=== PATIENT | male | born 1955 | race Caucasian/White ===

== ENCOUNTER 2018-06-21 20:22 | Inpatient (IN) ==
[2018-06-21] MEDS ORDERED: ORPHENADRINE IM ONE (20:35)
[2018-06-21] MEDS ORDERED: KETOROLAC 60 MG/2 ML VIAL IM ONE (20:35)
[2018-06-21] MEDS ORDERED: HYDROcodone-APAP 5 MG -325 MG TABLET PO ONE (20:36)
--- NOTE | 2018-06-21 21:05 | PDOC ---
Back Pain / Injury HPI - General Chief Complaint: Neck / Back Complaint Stated Complaint: BACK PAIN Date Seen by Provider: 06/21/18 Time Seen by Provider: 20:30 Source: Patient Exam Limitations: POSITIVE: No limitations Nurse's Notes Reviewed & Considered: Yes - History of Present Illness Initial Comments: The patient is a 62-year-old male who presents to the emergency department with complaints of right lower back pain. He states that over the weekend he developed some increased pain and stiffness in his lower back primarily in the right lower back. He states when he woke up this morning he felt pretty good. While in the parking lot at [employer] he was stepping into his truck when he felt something give way in his back. Since then he has had significant increase in pain primarily in the right lower back with some radiation down the back of his leg towards his knee. He went to the chiropractor earlier today however his pain has continued to worsen. He currently rates his pain an 8 out of 10. He does report some numbness down the side of his leg to his knee as well on the right side. He states that he had similar symptoms 20 years ago that lasted for several weeks. He denies any prior back surgery or fractures. He denies any associated abdominal pain or urinary symptoms. - Patient Home Medications Home Medications: Home Medications Doxazosin Mesylate 1 tab PO DAILY 06/21/18 Furosemide 40 mg PO DAILY 06/21/18 - Patient Allergies Allergies/Adverse Reactions: Allergies Allergy/AdvReac Type Severity Reaction Status Date / Time succinylcholine AdvReac Other : Verified 06/21/18 21:04 See Comment Past Medical History - heen HEENT History: Denies History Cardiovascular History: Denies History Respiratory History: Denies History Additional Gastrointestinal History: Lap Band surgery 2010 Genitourinary History: Denies History Endocrine History: Denies History Musculoskeletal History: Other (please comment) Prosthesis or Implant: No Additional Musculoskeletal History: Bicep surgery, 4 knee surgeries, 4 elbow surgeries, hernia x5, Foot surgery, Neurological History: Denies History Blood Disorders: Denies History Psychiatric History: Denies History Cancer History: Denies History In Past Year Been Physically Harmed or Verbally Threatened: No History of MDRO: No Tobacco Use: Former Smoker Alcohol Use: None In the Past 12 Months, Have Used or Abuse Any Substance: None Previous Surgical History: Yes Type / Date of Surgery: See surgical history above Significant Family History: No pertinent family hx Past Medical History Reviewed: Reviewed - No Changes ROS - Limitations ROS Limitations: No Limitations Constitution: DENIES: Chills, Fever Cardiovascular: DENIES: Chest Pain Respiratory: DENIES: Cough Non Productive, Cough Productive, Hurts To Breathe, Shortness Of Breath Neurological: REPORTS: Numbness (Some numbness on the side of his right leg to the level of his knee) Gastrointestinal: REPORTS: Denies GI Symptoms. DENIES: Abdominal Pain, Nausea, Vomitting Musculoskeletal: REPORTS: Back Pain. DENIES: Lower Extremity Swelling Genitourinary: DENIES: Dysuria, Hematuria, Difficulty Urinating Eyes: REPORTS: Denies Symptoms ENT: REPORTS: Denies Symptoms Skin: DENIES: Rash Back Physical Assessment - General Appearance General Appearance: REPORTS: Alert, Cooperative, No Acute Distress - HEENT HEENT: POSITIVE: Head Inspection Nml - Neck Neck: POSITIVE: Painless ROM, Trachea Midline - Respiratory / CVS Respiratory / CVS: POSITIVE: Chest Non Tender, Breath Sounds Normal, No Respiratory Distress, Heart Sounds Normal, Regular Rate/Rhythm - Abdomen Abdomen: Soft: (All Quadrants), Denies Tenderness: (All Quadrants), No Distention: (All Quadrants) - Back Back: REPORTS: Vertebral Pt. Tenderness (He does have tenderness in the lower lumbar region as well as the right paravertebral muscles in the lumbar region), Other (He does have pain with raising his right leg which initiates in his right lower back and shoots down his right leg to the level of his knee) - Skin Skin: REPORTS: Intact. DENIES: No Rash - Extremities Extremity Assessment: Normal Inspection: (ALL) Peripheral Pulses: Dorsalis-pedis (R): 2+ - Neurological / Psychological Neuro / Psych: POSITIVE: Oriented X3, Motor Normal Reflexes: Patellar (R): 2+, Patellar (L): 2+ Back Progress - Results Reviewed by me Xrays/CTs/US Reviewed: Yes Discussed with Radiologist: Yes Radiology Findings: Lumbar spine x-ray shows some degenerative changes with straightening of the spine, no acute fractures per radiologist. CT of the lumbar spine does show a combination of degenerative disc disease and degenerative arthritis causing some degree of central canal stenosis and neuro foraminal stenosis per radiologist. Lab Results Reviewed by Me: Yes CBC and BMP: 06/21/18 22:29 06/21/18 22:29 Lab Results:: Laboratory Results 06/21/18 06/21/18 22:29 22:29 WBC 8.20 RBC 5.12 Hgb 14.4 Hct 42.9 MCV 83.8 MCH 28.1 MCHC 33.6 RDW Std Deviation 44.9 RDW Coeff of Charlie 14.9 H Plt Count 211 MPV 10.8 Immature Gran % (Auto) 0.2 Neut % (Auto) 72.5 Lymph % (Auto) 16.8 Childress % (Auto) 10.0 Eos % (Auto) 0.4 Baso % (Auto) 0.1 Immature Gran # (Auto) 0.02 Neut # (Auto) 5.94 Lymph # (Auto) 1.38 Childress # (Auto) 0.82 H Eos # (Auto) 0.03 Baso # (Auto) 0.01 WBC Morphology Comment Normal morphology Plt Morphology Comment Normal morphology RBC Morph Comment Normal morphology Sodium 140 Potassium 4.1 Chloride 104 Carbon Dioxide 23 Anion Gap 13 BUN 18 Creatinine 1.2 Estimated GFR > 60 BUN/Creatinine Ratio 15.00 Glucose 99 Calculated Osmolality 291.0 Calcium 9.0 Magnesium 2.1 Total Bilirubin 0.8 AST 26 ALT 18 L Alkaline Phosphatase 85 C-Reactive Protein 1.8 H Total Protein 7.2 Albumin 4.2 Globulin 3.0 Albumin/Globulin Ratio 1.40 Serum Alcohol < 10 - Patient's Progress MDM / ED Course: The patient received Toradol 60 mg IM, Norflex 60 mg IM and [place] 5/325, 2 pills by mouth for pain. He did not really experience any pain relief with administration of any of these medications. Lumbar spine films showed some degenerative changes and straightening of the lumbar spine with no acute fractures per radiologist. The patient was still having considerable pain and hyperventilating. An IV was established and labs were drawn all of which are essentially unremarkable except for a mildly elevated CRP. He received Dilaudid 1 mg IV and Zofran 4 mg IV for pain. He initially had fairly good pain relief as long as he was laying completely flat. After administration of Dilaudid however he started to have oxygen desaturations especially when he would fall asleep laying flat. He was placed on O2 per nasal cannula. He then started to have recurrent significant pain which she stated was just as bad as when he first came in. He subsequently was sent for CT scan of the lumbar spine which does show a combination of degenerative disc disease and degenerative changes causing some central canal stenosis and neural foraminal stenosis at various levels, no acute fracture per radiologist. He was given a dose of Decadron 10 mg IV as well as Ativan 0.5 mg IV. He continued to have significant desaturations when he would fall asleep. The patient stated that he has been diagnosed with sleep apnea in the past however he thought that since he had lost 100 pounds that he was no longer having this issue. He does admit that he has not been tested for sleep apnea since he lost weight. At this point the patient is having continued oxygen desaturations likely from administration of multiple medications and underlying sleep apnea. His pain is also limiting his ability to move or sit up. Decision was made to admit the patient for further care. Dr. Deleon has agreed to admit the patient. The patient is in agreement with this plan. - Consult Counseled: POSITIVE: Patient, RE: Lab Results, RE: Radiology Results, RE: DX, RE: Need for F/U Patient Care Time - Estimated PCT Patient Care Time (In Minutes): 55 Vital Signs - Recent Vital Signs Vital Signs: Vital Signs (Last 8 hours) Temp Pulse Resp BP Pulse Ox 06/22/18 01:21 13 92 06/22/18 00:06 64 13 92/48 90 06/21/18 23:33 64 14 111/63 97 06/21/18 22:44 67 16 120/75 94 06/21/18 20:34 97.6 F 71 21 139/79 92 - VS Reviewed Vital Signs Reviewed: Yes Discharge Clinical Impression: Lumbar radiculopathy, Sleep apnea, Hypoxia Discharge Disposition: Admit to Observation Condition: Fair Follow Up With: NONE,NONE [Primary Care Provider] -
--- NOTE | 2018-06-21 21:46 | DI ---
History: ITS.REASON low back, right leg pain Physician Notes: Tech Comments: Exam: XR L SPINE 3 views Comparison: None available FINDINGS: No evidence of fracture or malalignment. Straightening may represent position or spasm. Suggestion of multilevel spondylosis/discogenic change lower lumbar spine. Note of lap band device. IMPRESSION: No evidence of fracture or malalignment. Straightening may represent position or spasm. Suggestion of multilevel spondylosis/discogenic change lower lumbar spine.
[2018-06-21] MEDS ORDERED: Sodium Chloride 0.9% 1,000 ML PRIMARY IV ONE (22:13)
[2018-06-21] MEDS ORDERED: HYDROmorphone 2 MG/1 ML IVP ONE (22:14)
[2018-06-21] MEDS ORDERED: ONDANSETRON 4 MG/2 ML VIAL IVP ONE (22:15)
[2018-06-21 22:26] LABS: BASOPHILS # (AUTO) 0.01 10*3/UL; BASOPHILS % (AUTO) 0.1 % (0-1); EOSINOPHILS # (AUTO) 0.03 10*3/UL; EOSINOPHILS % (AUTO) 0.4 % (0-8); Hematocrit [HCT] 42.9 % (42.0-52.0); Hemoglobin [HGB] 14.4 g/dL (14.0-18.0); LYMPHOCYTES # (AUTO) 1.38 10*3/uL; MEAN CORPUSCULAR HEMOGLOBIN 28.1 PG (27-31); MEAN CORPUSCULAR HGB CONC 33.6 g/dL (33-37); MEAN CORPUSCULAR VOLUME 83.8 FL (80-90); MEAN PLATELET VOLUME 10.8 FL (7.4-12.2); MONOCYTES # (AUTO) 0.82 10*3/UL (0.3-0.8); NEUTROPHILS # (AUTO) 5.94 10*3/UL; NEUTROPHILS % (AUTO) 72.5 % (50-80); RED BLOOD COUNT 5.12 10^6/uL (4.70-6.10)
[2018-06-21 22:30] LABS: PLATELET MORPHOLOGY COMMENT NORMAL MORPHOLOGY (NORM); RBC MORPHOLOGY COMMENT NORMAL MORPHOLOGY (NORM); WBC MORPHOLOGY COMMENT NORMAL MORPHOLOGY (NORM)
[2018-06-21 22:38] LABS: BLOOD UREA NITROGEN 18 mg/dL (7-22); SERUM ALBUMIN 4.2 g/dL (3.5-4.8)
[2018-06-21] MEDS ORDERED: DEXAMETHASONE PF 10 MG/1 ML VIAL IVP ONE (23:03)
[2018-06-21] MEDS ORDERED: LORazepam 2 MG/1 ML VIAL IVP ONE (23:45)
--- NOTE | 2018-06-22 00:53 | DI ---
EXAM: CT Lumbar Spine Without Intravenous Contrast CLINICAL HISTORY: ITS.REASON low backpain, right leg pain/numbness Physician Notes: Tech Comments: TECHNIQUE: Axial computed tomography images of the lumbar spine without intravenous contrast. COMPARISON: No relevant prior studies available. FINDINGS: Vertebrae: No acute fracture. No subluxation. Discs/spinal canal/neural foramina: Multilevel degenerative changes with varying degrees of central canal and neuroforaminal stenosis. Central canal stenosis is most prominent at L3-4 and L4-5. Neural foraminal stenosis is most prominent at the right L2-3 level. Soft tissues: Unremarkable. IMPRESSION: Degenerative changes without evidence of acute fracture.
--- NOTE | 2018-06-22 02:12 | PDOC ---
HPI - History of Present Illness History of Present Illness: Is a very nice 62-year-old gentleman is from [place] and that was at the [place] 20 minute in [place] while he was stepping to his truck he started having acute back pain on the lower right side extending towards his knee went to a chiropractor's pain continued to get worse and was seen in the ER CT scan and x-ray showed no fracture he was admitted for pain control He did pretty well overnight with Toradol, IV Tylenol, muscle relaxants, and steroids patient is still in pain I consult neurosurgery which ordered an MRI Past Medical History Medical History: Hypertension Tobacco Use: Former Smoker In the Past 12 Months, Have Used or Abuse Any of the Following Substance: None Medication / Allergies Home Medications: Home Medications Medication Instructions Recorded Confirmed Doxazosin Mesylate 1 tab PO DAILY 06/21/18 06/21/18 Furosemide 40 mg PO DAILY 06/21/18 06/21/18 Allergies/Adverse Reactions: Allergies Allergy/AdvReac Type Severity Reaction Status Date / Time succinylcholine AdvReac Other : Verified 06/21/18 21:04 See Comment Review of Systems - Review of Systems All Systems: Reviewed & No Additional Complaints Except as Stated - Respiratory Respiratory: DENIES: Negative System Review, Cough, Sputum, Dyspnea At Rest, Dyspnea with Exertion, Pleuritic Pain, Hemoptysis, Wheezing, Other, See HPI - Cardiovascular Cardiovascular: DENIES: Negative System Review, Chest Pain, Edema, Syncope, Palpitations, Orthopnea, Paroxysmal Nocturnal Dyspnea, Other, See HPI - Gastrointestinal Gastrointestinal / Abdominal: DENIES: Negative System Review, Nausea, Vomiting, Diarrhea, Constipation, Abdominal Pain, Bloody Stool, Poor Appetite, Heartburn, Regurgitation, Bloating, Lactose Intolerance, Melena, Bright Red Blood per Rectum, Other, See HPI - Musculoskeletal Musculoskeletal: REPORTS: Back Pain Exam - Vitals Vital Signs: Vital Signs Temperature 97.6 F Pulse Rate [Pulse Oximeter] 64 Respiratory Rate 13 Blood Pressure [Left Arm] 92/48 Pulse Ox 92 Oxygen Delivery Method Nasal Cannula Height 5 ft 9 in Weight 255 lb - General General Appearance: No Acute Distress, Cooperative - Neck Neck Exam: Normal Inspection, Full ROM, No Tenderness, No Lymphadenopathy, No Thyromegaly, JVP is not Raised - Respiratory Respiratory Exam: POSITIVE: Clear to Auscultation - Bilaterally, Breathing Non Labored, Normal To Percussion, Normal to Percussion and Palpation - Cardiovascular Cardiovascular Exam: POSITIVE: RRR, No Murmur, No Clicks, No Gallops, No Rubs, PMI Non-Displaced - GI/Abdominal GI/Abdominal Exam: POSITIVE: Normal Bowel Sounds, Non Tender, Non Distended, Soft, No Masses, No Hepatomegaly, No Splenomegaly, No Organomegaly - Extremities Extremities Exam: POSITIVE: No Clubbing Present, No Edema Present, No Cyanosis Present - Back Back Exam: POSITIVE: Tenderness Additional Back Exam Details: Right lower back on palpation - Neurological Neurological Exam: POSITIVE: Alert, Oriented x 3, Reflexes Normal, Normal Gait, CN II-XII Intact, No Facial Droop, Speech Intact / Clear, Moves All Extremities Equally, No Fasciculations, No Clonus Results - Labs CBC and BMP: 06/21/18 22:29 06/21/18 22:29 Assessment and Plan - Patient Problems (1) Back pain Current Visit: Yes Status: Acute Comment: no narcs /jose will give tylenol iv/toradol/solumedrol. vapotherm if necesary consult to neurosurgery MRI in progress I believe this is all muscle spasms continue PTOT muscle relaxants and nonnarcotic pain control Code(s): M54.9 - Dorsalgia, unspecified
[2018-06-22] MEDS ORDERED: ACETAMINOPHEN 325 MG TABLET PO PRN (02:25)
[2018-06-22] MEDS ORDERED: DOCUSATE 100 MG CAPSULE PO PRN (02:25)
[2018-06-22] MEDS ORDERED: LIDOCAINE W/ SODIUM BICARB 0.5 ML SYR SUBD PRN (02:25)
[2018-06-22] MEDS ORDERED: ONDANSETRON 4 MG/2 ML VIAL IVP PRN (02:25)
[2018-06-22] MEDS: Sodium Chloride 0.9% 1,000 ML PRIMARY IV SCH ×3 (02:45→21:44)
[2018-06-22] MEDS: methylPREDNISolone 125 MG/2 ML VIAL IVP SCH ×4 (02:45→19:56)
[2018-06-22] MEDS: Acetaminophen 1000mg Inj 1,000 MG/100 ML VIAL IV PRN ×3 (02:46→21:40)
[2018-06-22] MEDS: HEPARIN 5000 UNIT/1 ML SUBCUT SCH ×3 (02:50→19:56)
[2018-06-22] MEDS: KETOROLAC 30 MG/1 ML VIAL IVP PRN ×3 (06:32→19:29)
[2018-06-22] MEDS ORDERED: FUROSEMIDE 40 MG TABLET PO SCH (09:00)
[2018-06-22] MEDS ORDERED: DOXAZOSIN 2 MG TABLET PO SCH (09:00)
[2018-06-22] MEDS: CYCLOBENZAPRINE 10 MG TABLET PO PRN ×2 (09:09→16:19)
--- NOTE | 2018-06-22 12:29 | DI ---
MRI Lumbar Spine WO Contrast 06/22/2018 10:31 AM History: [facility] [place] ^low back pain with radiculopathy Comparison: Lumbar spine radiographs from 06/21/2018. CT lumbar spine 06/22/2018. Procedure: Noncontrast routine MR imaging of the lumbar spine was performed. Findings: There are five non rib-bearing lumbar type vertebral bodies. There is congenital central ca nal narrowing secondary to short pedicles and straightening of the lumbar lordosis without spondyloli sthesis. There is an L3 vertebral hemangioma. Modic type II endplate changes are present at the L3/4 and L4/5 levels. The vertebral body heights are maintained and marrow signal is otherwise preserved. There is normal termination of the conus at the L1 level. L1/2: Mild disc desiccation without height loss. Schmorl's node formation. Concentric disc bulge and narrows the central canal to 10 mm. There is mild bilateral neuroforaminal and lateral recess narrow ing. L2/3: Mild disc desiccation and height loss. Concentric disc bulge narrows the central canal to 9 mm. There is a right foraminal disc protrusion that impinges on the exiting right L2 nerve root in the n eural foramen and far lateral space. The disc bulge also causes lateral recess narrowing on the left and is in contact with the descending left L3 nerve root in the lateral recess. L3/4: Moderate disc desiccation and height loss. Concentric disc bulge narrows the central canal to 7 mm. The disc bulge combined with ligamentum flavum hypertrophy and facet arthrosis results in modera te bilateral neuroforaminal and lateral recess narrowing. The disc bulge impinges on the descending l eft L4 nerve root in the lateral recess. L4/5: Moderate disc desiccation and height loss. Concentric disc bulge narrows the central canal to 8 mm. The disc bulge with ligamentum flavum hypertrophy and facet arthrosis results in moderate bilate ral neuroforaminal and lateral recess narrowing. The disc bulge contacts the exited L4 nerve roots in the far lateral space bilaterally. The disc bulge contacts the descending L5 nerve roots in the late ral recesses bilaterally. L5/S1: Mild disc desiccation and height loss. There is no significant central canal stenosis. Ligamen tiffany flavum hypertrophy and facet arthrosis results in mild bilateral neuroforaminal narrowing. Paravertebral soft tissues are within normal limits. Impression: Multilevel degenerative disc disease as above. There is a right foraminal L2/3 disc protr usion that impinges on the exiting right L2 never in the neural foramen and far lateral space. Nerve root contact is noted at multiple other levels.
[2018-06-22] MEDS: CALCIUM CARBONATE 500 MG (TUMS) CHEWABLE TABLET PO PRN (14:00)
[2018-06-22] MEDS ORDERED: MORPHINE SULFATE 2 MG/1 ML IVP ONE (14:09)
--- NOTE | 2018-06-22 14:35 | PT.PROG ---
Progress Note Progress Note: Attempted PT evaluation this AM and PM - pt refused secondary to MRI this morning and pain this afternoon. Will attempt evaluation for back pain tomorrow.
--- NOTE | 2018-06-22 16:08 | CONSULT ---
Consult Note - Consult Consult Date: 06/22/18 Reason for Consult: PreOp Consulation : Neuro Requesting Physician: Branden Deleon MD Primary Care Provider: NONE NONE - History of Present Illness History of Present Illness: Mr. Saleh is a 62-year-old gentleman is from [place] admitted through the ER for intractable pain with inability to weight bear and to walk. He felt a pop in his back when he was stepping into his truck yesterday. He instantly felt severe right sided low back pain radiating into the lateral aspect of the right upper thigh where his pain in the most intense, tapering medially toward the knee. He is laying flat in the bed unable to have the back of the bed raised or to walk even to the bathroom because of severe pain. It took so much pain medication in the ER to control his pain that he became apneic. His pain has not responded to IV solumedrol. Medical History: Hypertension Surgical History: Lap band Right elbow surgery x 4 Right hernia surgery x 4 Left Knee surgery x 4 Carpal tunnel surgery x 3 (left once, right twice) Breast mass removal bilaterally. Medications: Cardura Lasix Medication Allergies: Succinylcholine Family History: Social History: Non-smoker Review of Systems: Systems reviewed and positive currently only for back pain and right leg pain. Physical Examination; Awake, alert, fully oriented Head normocephalic Neck supple Heart regular rate and rythym Lungs clear to auscultation Abdomen soft, nontender Extremities within normal limits Skin within normal limits; multiple surgical scars CN II - XII functionally intact to examination Weakness of right ileospoas muscle, 4-/5, strength full in all other major muscle groups of the upper and lower extremties bilaterally. Imaging: I reviewed Mr. Saleh's lumbar MRI scan, CT scan, and x-ray images of the lumbar spine performed at [facility] [place], 06/22/2018. The MRI, CT, and x-ray images demonstrate evidence of multilevel lumbar degenerative changes, age appropriate. The MRI scan demonstrates a right L2-3 foraminal disc herniation filling the neuroforamen, clearly impinging upon the exiting right L2 nerve root. Impression: 1.) Intractable right L2 radiculopathy 2.) Lateral (foraminal) right L2-3 herniated nucleus propulsis filling the right L2 neuroforamen and clearly impinging upon the exiting right L2 nerve root. Medical Decision Making: I reviewed Mr. Saleh's MRI scan with him and his , demonstrating for them the right L2-3 lateral disc herniation that I think is responsible for his symptoms. We discussed that although his pain is severe and incapacitating neither his symptoms nor his lumbar pathology is life or limb threatening. Therefore the treatment options available to him are expectant management with activity modification, medical management, physical therapy, lumbar injections, or surgical treatment. Realistically with him incapacitated by his pain lying flat in bed, not able to elevate the head of his bed or even to ambulate to the bathroom, with the weakness of his ileopsoas making him a fall risk if he could ambulate, the only treatment that will give his significant and durable relief of his symptoms is surgical treatment. The surgery required to relieve his symptoms in my opinion is a right L2-3 microlumbar discectomy. He wished to proceed with the surgical procedure. We discussed the technical aspects of the procedure. I used his MRI scan to illustrate the basic technical aspects of the procedure. We discussed that he has approximately a 70-80% chance of significant reduction of his symptoms with the procedure. We discussed the numerous risks of the procedure. We discussed the risk of blood loss including a remote risk of injury to a major blood vessel anterior to the spine that could result in catastrophic blood loss, require massive blood transfusion, and could potentially be a life threatening injury. We discussed that this could require emergent surgery through the abdomen by a general or vascular surgeon, or could require emergent transport to a higher acuity medical facility. We discussed an approximate 1-2% risk of infection. We discussed that a deep infection could require re-operation with irrigation and debridement of the surgical site, the placement of a PICC line, a month or more of IV antibiotic therapy and possibly an oral antibiotic regimen after that. We discussed the risk of a incidental durotomy with cerebral spinal fluid leak and that the risk of this is in the range of 5-10%. We discussed that sometimes the dural rent can be sewn up primarily, sometimes it cannot, but in those cases there are dural substitutes and tissue sealants that combined with post-operative bed rest for several days, will allow such dural rents to heal like any other tissue. We discussed that for persistent CSF leak, a blood patch, lumbar drain, or re-operation with re-exploration of the surgical site may be necessary. We discussed the risk of a post-operative hematoma or seroma, a fluid collection creating a mass effect on the nerves in the vicinity of the surgical site that generally if it going to occur usually occurs within the first 24-48 hours after the surgical procedure, and generally does require surgical evacuation. We discussed rarely they may occur on a delayed basis, but still may require operative treatment. We discussed the risk of new or worse symptoms secondary to the manipulation of the nerves during the procedure. We discussed that such new or worse symptoms generally would be transcient, getting better in weeks to months however there is a small chance that such new or worse symptoms could be permanent. We discussed the remote risk of complete paralysis from the waist down, including loss of all motor, sensory, bowel, bladder, and sexual function. We discussed the remote risk of from the induction of anesthesia. We discussed the remote risk of blindness undergoing a prone or "face down" procedure. We discussed the remote risk of a nerve palsy, numbness, tingling, loss of feeling, or weakness in an extremity secondary to pressure over the nerve during the procedure. We discussed that such nerve palsies almost always get better, but it can take months to years for improvement, and the recovery may not be complete. Mr. Saleh and his stated that they understood our discussion of the procedure and the potential benefits and risks of the procedure. I answered any questions that they had regarding the procedure. Mr. Saleh wished to proceed with the surgical procedure. Past Medical History Medical History: Hypertension Tobacco Use: Former Smoker In the Past 12 Months, Have Used or Abuse Any of the Following Substance: None Medication / Allergies Home Medications: Home Medications Medication Instructions Recorded Confirmed Doxazosin Mesylate 1 tab PO DAILY 06/21/18 06/21/18 Furosemide 40 mg PO DAILY 06/21/18 06/21/18 Allergies/Adverse Reactions: Allergies Allergy/AdvReac Type Severity Reaction Status Date / Time succinylcholine AdvReac Other : Verified 06/21/18 21:04 See Comment Exam - Vitals Vital Signs: Vital Signs Temperature 97.2 F Temperature Source Temporal Artery Scan Pulse Rate [Pulse Oximeter] 56 Pulse Rate [left hand] 56 Pulse Rate 50 Respiratory Rate 20 Blood Pressure [Left Arm] 121/73 Blood Pressure 126/79 Pulse Ox [left hand] 95 Pulse Ox 94 Oxygen Flow Rate [left hand] 3 Oxygen Flow Rate 2.5 Oxygen Delivery Method [left Room Air hand] Oxygen Delivery Method Nasal Cannula Height 5 ft 9 in Weight 264 lb 4 oz Results - Labs CBC and BMP: 06/21/18 22:29 06/21/18 22:29
--- NOTE | 2018-06-22 16:45 | OT.PROG ---
Progress Note Progress Note: Attempted occupational therapy evaluation this afternoon. Pt. refused to participate due to pain. Will attempt when pt.'s pain has improved. JAZ Hernandez/Megan
[2018-06-23] MEDS: CYCLOBENZAPRINE 10 MG TABLET PO PRN (01:03)
[2018-06-23] MEDS: KETOROLAC 30 MG/1 ML VIAL IVP PRN (03:06)
[2018-06-23] MEDS: methylPREDNISolone 125 MG/2 ML VIAL IVP SCH (03:06)
[2018-06-23] MEDS: HEPARIN 5000 UNIT/1 ML SUBCUT SCH (03:06)
[2018-06-23] MEDS: CALCIUM CARBONATE 500 MG (TUMS) CHEWABLE TABLET PO PRN (03:42)
[2018-06-23 04:47] LABS: BASOPHILS # (AUTO) 0.01 10*3/UL; BASOPHILS % (AUTO) 0.1 % (0-1); EOSINOPHILS # (AUTO) 0 10*3/UL; EOSINOPHILS % (AUTO) 0 % (0-8); Hematocrit [HCT] 42.2 % (42.0-52.0); Hemoglobin [HGB] 13.7 g/dL (14.0-18.0); LYMPHOCYTES # (AUTO) 0.77 10*3/uL; MEAN CORPUSCULAR HEMOGLOBIN 27.6 PG (27-31); MEAN CORPUSCULAR HGB CONC 32.5 g/dL (33-37); MEAN CORPUSCULAR VOLUME 85.1 FL (80-90); MEAN PLATELET VOLUME 11.5 FL (7.4-12.2); MONOCYTES % (AUTO) 4.2 % (5-15); NEUTROPHILS # (AUTO) 15.14 10*3/UL; NEUTROPHILS % (AUTO) 90.9 % (50-80); RED BLOOD COUNT 4.96 10^6/uL (4.70-6.10)
[2018-06-23] MEDS: Acetaminophen 1000mg Inj 1,000 MG/100 ML VIAL IV PRN (04:51)
[2018-06-23 04:58] LABS: BLOOD UREA NITROGEN 28 mg/dL (7-22); BUN/CREATININE RATIO 23.33 (6-20); SERUM ALBUMIN 3.2 g/dL (3.5-4.8)
[2018-06-23] MEDS ORDERED: Lactated Ringers 1,000 ML PRIMARY IV SCH (05:00)
[2018-06-23 05:05] LABS: PLATELET MORPHOLOGY COMMENT NORMAL MORPHOLOGY (NORM); RBC MORPHOLOGY COMMENT NORMAL MORPHOLOGY (NORM); WBC MORPHOLOGY COMMENT NORMAL MORPHOLOGY (NORM)
[2018-06-23] MEDS ORDERED: ceFAZolin Inj 2gm (Premix) 2 GM/50 ML BAG IV ONE ×2 (06:09→07:00)
[2018-06-23] MEDS: Sodium Chloride 0.9% 1,000 ML PRIMARY IV SCH (06:19)
[2018-06-23] MEDS ORDERED: Vancomycin-PHA to Dose IV SCH ×3 (07:00→19:00)
[2018-06-23] MEDS ORDERED: fentaNYL Inj 250 MCG/5 ML VIAL ONE (07:20)
[2018-06-23] MEDS ORDERED: MIDAZOLAM HCL 2 MG/2 ML VIAL ONE (07:20)
[2018-06-23] MEDS ORDERED: PROPOFOL 10 MG/1 ML (200 MG/20 ML) VIAL IV ONE (07:21)
[2018-06-23] MEDS ORDERED: LIDOCAINE MPF 2% - 5 ML (20 MG/1 ML) ONE (07:21)
[2018-06-23] MEDS ORDERED: Sodium Chloride 0.9% vial 10 ML ONE ×2 (07:23→10:37)
[2018-06-23] MEDS ORDERED: BACITRACIN 50,000 UNIT VIAL IRRIG ONE ×2 (07:24→10:37)
[2018-06-23] MEDS ORDERED: ROCURONIUM 10 MG/1 ML - 5 ML VIAL IVP ONE (07:25)
[2018-06-23] MEDS ORDERED: REMIFENTANIL HCL 2 MG VIAL IV ONE (07:26)
[2018-06-23] MEDS ORDERED: Propofol 1,000 MG/100 ML VIAL IV ONE (07:26)
[2018-06-23] MEDS ORDERED: LIDOCAINE HCL 2 % 10 ML JELLY URO-JECT TOPICAL ONE ×2 (08:15→09:04)
[2018-06-23] MEDS ORDERED: KETAMINE 100 MG/1 ML - 5 ML ONE (08:32)
[2018-06-23] MEDS ORDERED: BUPIVACAINE 0.25% W/ EPI - 10 ML VIAL ONE (08:33)
[2018-06-23] MEDS ORDERED: HYDROmorphone 2 MG/1 ML ONE (08:35)
[2018-06-23] MEDS ORDERED: Lactated Ringers 1,000 ML PRIMARY IV ONE (09:28)
[2018-06-23] MEDS ORDERED: Nasal Sanitizer POPSWAB ampule 3 AMP (Nozin) PREOP DOSE ENOS SCH (09:30)
[2018-06-23] MEDS ORDERED: Sodium Chloride 0.9% vial 20 ML ONE (10:14)
[2018-06-23] MEDS ORDERED: BUPivacaine Liposome/PF (Exparel) Inj 20ml vial INFIL ONE (10:15)
[2018-06-23] MEDS ORDERED: HYDROCORTISONE 100 MG/2 ML ONE (10:35)
[2018-06-23] MEDS ORDERED: Vancomycin Inj 1gm vial ONE (10:38)
--- NOTE | 2018-06-23 11:28 | GEN.OPNOTE ---
Operative Note Surgery Date: 06/23/18 Preoperative Diagnosis: 1.) Intractable right upper lateral thigh pain. 2.) Right L2 radiculopathy. 3.) Large right L2-3 foraminal disc herniation. Postoperative Diagnosis: 1.) Intractable right upper lateral thigh pain. 2.) Right L2 radiculopathy. 3.) Large right L2-3 foraminal disc herniation. Procedure: 1.) Right L2-3 microlumbar discectomy. (CPT code: 05335). 2.) Use of the operative microscope used for the microsurgical techniques used to perform the discectomy. (CPT code: 59169). 3.) Use of intra-operative fluoroscopy for localization of correct surgical level. Surgeon: Avni Rahman MD Vehicle Calibration Engineer: VIVIAN Markham Anesthesia Provider: Angel Ponce CRNA Anesthesia Type: General Estimated Blood Loss (mL): 100 Fluids: See anesthesia record Pathology: None Indications: Mr. Saleh is a 62-year-old gentleman from [place] admitted through the ER for intractable pain with inability to weight bear and to walk. He felt a pop in his back when he was stepping into his truck yesterday. He instantly felt severe right sided low back pain radiating into the lateral aspect of the right upper thigh where his pain in the most intense, tapering medially toward the knee. He was laying flat in the bed unable to have the back of the bed raised or to walk even to the bathroom because of severe pain. It took so much pain medication in the ER to control his pain that he became apneic. His pain has not responded to IV solumedrol or pain medications. I discussed surgical treatment with him yesterday in consultation, recommending a right L2-3 microlumbar discectomy. He wished to proceed with the surgical procedure. Findings: Massive right L2-3 foraminal disc extrusion Complications: None Operative Summary: Mr. Saleh was met in the preoperative area. The surgical history and physical in his chart was reviewed. The procedure to be performed was confirmed with them and they were in agreement on the procedure and this matched what was written on the patient's consent form. Any questions Mr. Saleh or his had were answered before he was taken back to the operating room suite. Mr. Saelh was brought back to the operating room suite and put under general anesthesia and intubated by the anesthesia staff. He had a Chu catheter in his bladder. He had pneumatic compression hose placed on his lower legs. Mr. Saleh was carefully rolled over onto the [place] surgical table with his arms gently positioned upwards with his shoulders abducted less than 90. His arms were well-padded with foam padding on top of the padding of the surgical armboards. The region of his chest and axilla was checked bilaterally to make sure that there were no pressure points over the region of the brachial plexus. His nipples were checked be below the chest pad of the P[place]a table with no pressure points. All bony prominences were well padded. His Chu catheter was checked to be free from kinks. His pneumatic compression hose was attached and pneumatic compression device. The C-arm fluoroscopy unit was used to help localize the skin incision for the approach to the intended surgical level. The intended skin incision was marked with a skin marker was several crosshatches. Mr. Saleh was prepped and draped in the usual and standard fashion. He was given a gram of vancomycin IV and 2 g of Ancef IV for perioperative antibiosis. A standard surgical timeout was performed identifying the correct patient, the correct procedure, and the correct equipment being available for the procedure. The intended skin incision was injected subcutaneously with quarter percent Marcaine with 1 in 200,000 epinephrine. 17 mL of local anesthetic was used. The skin was incised with a 10 blade scalpel and all dermal and superficial bleeding points were coagulated with bipolar cautery. The dissection was continued through the subcutaneous tissue down to the lumbar fascia. The lumbar fascia was incised along the border the spinous processes on the right and subperiosteal dissection was performed down the spinous process believed to be the spinous process of L2 and this was taken out laterally over what was believed to be the L2 lamina. Once the lamina was fully exposed [place] 4 instrument was placed underneath the lamina and the level was localized with lateral fluoroscopy identifying the [place] 4 instrument to be underneath the L2 lamina just below the L2-3 disc space. Continued subperiosteal dissection was performed exposing the entire L2 lamina the very inferior aspect of the L1 lamina and the very superior aspect of the L3 lamina. Dissection exposed the medial aspect of the L2-3 facet joint and the L2 and L3 pars. A Landen retractor was placed for self-retaining retraction. The operating microscope was brought into the surgical field and used for microsurgical techniques used for the right L2-3 microlumbar discectomy. The high-speed [employer] Eduardo drill with a matchstick bit was used to perform a hemilaminotomy and medial facetectomy. An up angled curette was used to strip the insertion of the yellow ligament from underneath the remaining aspect of the L2 lamina. A nerve hook was used to define the plane between the yellow ligament and the dura and the yellow ligament was completely removed in the right reuben-canal and in the lateral recess. There was noted during the dissection to be significant lateral recess stenosis at L2-3 extending underneath the leading edge of the L3 lamina which was removed in the lateral recess as well as the right reuben-canal decompressing the thecal sac from the stenosis which was confirmed with both visual inspection as well as with palpation with the [place] instrument underneath the remaining aspect of the L3 lamina both within the reuben-canal and the right lateral recess. A [place] 4 instrument was used to carefully dissect the soft tissue adjacent to the thecal sac identifying the L2-3 disc space. Epidural veins over the disc space were coagulated with bipolar cautery turned down to a low setting. The disc space in the lateral recess was essentially flat but could seen to become more dorsally elevated as it entered into the L2 neuroforamen. The thecal sac was gently retracted with the sucker and an annulotomy was performed in the right L2-3 disc space right at the entrance to the proximal aspect of the right L2 neuroforamen. Disc material was removed with a pituitary rongeur. There was disrupted disc in the disc space that was encountered. The disrupted disc material in the lateral aspect of the L2-3 disc space was removed. There was additional disrupted disc material found subligamentously underneath the ligament of the neuroforamen. A down-biting medium Chaka curette was used to dissect additional disrupted disc material from right underneath the annulus and the neuroforamen with the disrupted fragments being removed with a straight pituitary rongeur as well as up-biting pituitary rongeur. Some of the ligament itself was then cut and removed from the pocket proximal aspect of the neuroforamen with a Kerrison punch. A ball-tip instrument was then used to inspect more rostrally underneath the proximal aspect of the exiting L2 nerve root and a large fragment of extruded disc material came exposed which was subsequently easily removed with a pituitary rongeur. The ball-tip instrument was then used to sweep again underneath the proximal and the middle aspect of the L2 nerve root in the proximal and middle aspect of the rostral aspect of the L2 neuroforamen teasing out another large fragment of extruded disc material which was removed. Additional sweeps of the ball-tip instrument identified no further extruded disc material underneath or around the L2 nerve root or in the L2 neuroforamen. Excellent decompression of the right reuben-canal, right lateral recess, and of the right exiting L2 nerve root and nerve foramen end of the proximal aspect of the transversing L3 nerve root in the lateral recess was assured both by visual inspection as well as by palpation in the canal and lateral recess and nerve foramen and around the nerve structures with the Sunni instrument. A directional veterinary x ray operator was used to irrigate out the lateral recess rostrally and caudally and irrigate the L2 neuroforamen. The surgical site itself was then copiously irrigated with bacitracin irrigation. The surgical site was inspected for any bleeding points but it was quite dry with no bleeding points being identified. FloSeal hemostatic agent was placed in the lateral recess and over the exposed dural elements. A half a gram of vancomycin powder was sprinkled into the surgical site. The surgical site was then closed. #1 Vicryl suture was used to tightly close the lumbar fascia. The surgical site was irrigated again with bacitracin irrigation. The deep subcutaneous tissue and fascia was reapproximated with #0 Vicryl suture in a interrupted fashion. The surgical site was again irrigated with bacitracin irrigation. 40 mL of 20 mL of Exparel diluted with 20 mL of quarter percent Marcaine was then injected all around the incision and the subcutaneous tissue. The superficial s ubcutaneous tissue was reapproximated with 2-0 Vicryl suture in an interrupted fashion. The dermis and superficial subcutaneous tissues were then reapproximated with 3-0 Vicryl suture in an inverted interrupted fashion. The Ioban drape was pulled back from the skin edges. The fiinal layer of closure was performed with surgical stainless steel hira. A Provena incisional suction dressing was applied as the surgical dressing. All surgical drapes removed from Mr. Saleh. He was then carefully rolled over onto the PACU stretcher. He was awoken and extubated by the anesthesia staff. He was taken to the recovery room in stable condition. All surgical counts reported as correct by the scrub and circulating personnel. A physician's rn first assistant, Mrs. Ivet Monique PA-C, assisted with the procedure including the exposure and closure portions of the procedure. She also provided irrigation and suctioning throughout the procedure.
[2018-06-23] MEDS ORDERED: SUGAMMADEX SODIUM 200 MG/2 ML VIAL IV ONE (11:32)
[2018-06-23] MEDS ORDERED: fentaNYL Inj 100 MCG/2 ML VIAL IVP PRN (11:48)
[2018-06-23] MEDS ORDERED: ONDANSETRON 4 MG/2 ML VIAL IVP PRN ×2 (11:48→12:28)
[2018-06-23] MEDS ORDERED: LIDOCAINE W/ SODIUM BICARB 0.5 ML SYR SUBD PRN (11:48)
[2018-06-23] MEDS ORDERED: HYDROmorphone 2 MG/1 ML IVP PRN (11:48)
--- NOTE | 2018-06-23 11:51 | CRNA.PROGR ---
Anesthesia Time - Procedure/Recovery Time Start Date: 06/23/18 End Date: 06/23/18 Anesthesia : Time In: 07:58 Anesthesia : Time Out: 11:38 Anesthesia : Total Time: 220 - Total Anesthesia Time Total Anesthesia Time (minutes): 220 - Other Weight: 120.293 kg Height: 5 ft 9 in Body Mass Index (BMI): 39.2 Physical Status: P3 Anesthesia Type: General Anesthesia : ET (Prone)
--- NOTE | 2018-06-23 11:51 | CRNA.PROGR ---
Anesthesia Recovery Phase I - Post Anesthesia Evaluation Patient's Condition on Arrival in Phase I: Stable Pain Level: 0
[2018-06-23] MEDS ORDERED: Dexamethasone Tab 4 MG TABLET PO SCH (12:00)
[2018-06-23] MEDS ORDERED: HYDROcodone-APAP 5 MG -325 MG TABLET PO PRN (12:28)
[2018-06-23] MEDS ORDERED: MAGNESIUM CITRATE 296 ML SOLUTION PO PRN (12:28)
[2018-06-23] MEDS ORDERED: Ondansetron ODT Tab 4 MG TAB PO PRN (12:28)
[2018-06-23] MEDS ORDERED: DOCUSATE 100 MG CAPSULE PO PRN (12:28)
[2018-06-23] MEDS ORDERED: MORPHINE SULFATE 2 MG/1 ML IVP PRN (12:28)
[2018-06-23] MEDS ORDERED: HYDROcodone-APAP 10 MG-325 MG TABLET PO PRN (12:28)
[2018-06-23] MEDS ORDERED: BISACODYL 5 MG TABLET PO PRN (12:28)
[2018-06-23] MEDS ORDERED: MAGNESIUM 400 MG/5 ML - 30 ML (MILK OF MAGNESIA) PO PRN (12:28)
[2018-06-23] MEDS ORDERED: DIAZEPAM 5 MG TABLET PO PRN (12:28)
[2018-06-23] MEDS ORDERED: oxyCODONE/APAP 10/325 Tab 1 EACH TAB PO PRN (12:28)
[2018-06-23] MEDS ORDERED: Prochlorperazine Edisylate Inj 10mg/2ml vial IVP PRN (12:28)
[2018-06-23] MEDS ORDERED: DIAZEPAM 10 MG/2 ML (5 MG/1 ML) CARPUJECT IVP PRN (12:28)
[2018-06-23] MEDS ORDERED: Fleet Enema 133ml RECTAL PRN (12:28)
[2018-06-23] MEDS ORDERED: PROMETHAZINE 25 MG/1 ML VIAL IM PRN (12:28)
[2018-06-23] MEDS ORDERED: HYDROcodone-APAP 7.5 MG-325 MG TABLET PO PRN (12:28)
[2018-06-23] MEDS ORDERED: Metoclopramide Inj 10 MG/2 ML VIAL IVP PRN (12:28)
--- NOTE | 2018-06-23 13:02 | NEURO.PROG ---
Subjective Post Op Day: 0 Pain Management: PO Chu Catheter: Yes Diet: Regular Ambulating: Yes Additional Details: Still somewhat sleepy from anesthesia in med/surg floor room. Follows commands. Moving all extremities well. Good knee flexion/dorsiflexion/plantarflexion bilaterally. PLAN: 1.) Continue post-operative antibiotics. 2.) Continue post-operative steroids. 3.) Continue post-operative pain control. 4.) Advance diet. 5.) Have fit for brace. 6.) Mobilize. Objective : Data - Labs CBC and BMP: 06/23/18 04:16 06/23/18 04:16 - Vital Signs Vital Signs and I&O: Vital Signs - Last Taken Temperature 96.9 F 06/23/18 11:40 Pulse Rate 45 L 06/23/18 11:40 Respiratory Rate 15 06/23/18 11:40 Blood Pressure 105/65 06/23/18 11:40 Pulse Ox 94 06/23/18 11:40 Intake and Output (24hr x 4 totals) 06/21/18 06/22/18 06/23/18 06/24/18 05:59 05:59 05:59 05:59 Intake Total 800 / 800 5642 / 5642 1500 / 1500 Output Total 1600 / 1600 75 / 75 Balance 800 / 800 4042 / 4042 1425 / 1425
--- NOTE | 2018-06-23 15:32 | PDOC(PROG) ---
Interval History: Patient seen of the postop area doing well discuss case with Dr. Rahman's surgery went well. He has no complaints at present time is awake Objective : Data - Labs CBC and BMP: 06/23/18 04:16 06/23/18 04:16 Objective : Exam - Respiratory Respiratory Exam: Clear to Auscultation - Bilaterally, Breathing Non Labored, Normal To Percussion, Normal to Percussion and Palpation - Cardiovascular Cardiovascular Exam: RRR, No Murmur, No Clicks, No Gallops, No Rubs, PMI Non- Displaced - GI/Abdominal GI/Abdominal Exam: Normal Bowel Sounds, Non Tender, Non Distended, Soft, No Masses, No Hepatomegaly, No Splenomegaly, No Organomegaly Assessment and Plan - Patient Problems (1) Back pain Current Visit: Yes Status: Acute Comment: Procedure: 1.) Right L2-3 microlumbar discectomy. (CPT code: 44834). 2.) Use of the operative microscope used for the microsurgical techniques used to perform the discectomy. All postop orders as per Dr. Rahman Code(s): M54.9 - Dorsalgia, unspecified - Assessment / Plan Additional Assessment/Plan Details: Continue to follow labs troponins were negative we will have a quick recovery and be home by Monday
[2018-06-23] MEDS ORDERED: CALCIUM CARBONATE 500 MG (TUMS) CHEWABLE TABLET PO PRN (16:33)
[2018-06-23] MEDS: ceFAZolin Inj 1 GM in Sodium Chloride 0.9% 100 ML IV SCH ×2 (16:57→23:53)
[2018-06-23] MEDS: Dexamethasone Tab 4 MG TABLET PO SCH ×2 (16:57→22:35)
[2018-06-23] MEDS: oxyCODONE-ACETAMINOPHEN 5-325 TAB PO PRN ×2 (17:55→22:35)
[2018-06-24] MEDS: oxyCODONE-ACETAMINOPHEN 5-325 TAB PO PRN ×3 (04:12→22:19)
[2018-06-24 04:32] LABS: BASOPHILS # (AUTO) 0.01 10*3/UL; BASOPHILS % (AUTO) 0.1 % (0-1); EOSINOPHILS # (AUTO) 0 10*3/UL; EOSINOPHILS % (AUTO) 0 % (0-8); Hematocrit [HCT] 41.3 % (42.0-52.0); Hemoglobin [HGB] 13.5 g/dL (14.0-18.0); LYMPHOCYTES # (AUTO) 0.54 10*3/uL; MEAN CORPUSCULAR HEMOGLOBIN 28.4 PG (27-31); MEAN CORPUSCULAR HGB CONC 32.7 g/dL (33-37); MEAN CORPUSCULAR VOLUME 86.9 FL (80-90); MEAN PLATELET VOLUME 11.6 FL (7.4-12.2); MONOCYTES # (AUTO) 0.96 10*3/UL (0.3-0.8); MONOCYTES % (AUTO) 5.8 % (5-15); NEUTROPHILS # (AUTO) 14.89 10*3/UL; NEUTROPHILS % (AUTO) 90.6 % (50-80); RED BLOOD COUNT 4.75 10^6/uL (4.70-6.10)
[2018-06-24 04:37] LABS: PLATELET MORPHOLOGY COMMENT NORMAL MORPHOLOGY (NORM); RBC MORPHOLOGY COMMENT NORMAL MORPHOLOGY (NORM); WBC MORPHOLOGY COMMENT NORMAL MORPHOLOGY (NORM)
[2018-06-24 04:44] LABS: BLOOD UREA NITROGEN 28 mg/dL (7-22)
[2018-06-24] MEDS: Dexamethasone Tab 4 MG TABLET PO SCH ×4 (04:57→22:17)
--- NOTE | 2018-06-24 07:00 | NEURO.PROG ---
Subjective Post Op Day: 1 Pain Management: PO Chu Catheter: No Diet: Regular Ambulating: Yes Additional Details: Freddy is awake and alert. He states that the pain he had down his right lateral thigh is gone. He does have surgical site pain which has been managed well with oxycodone. He has ambulated in the room. His is afebrile and his VS are stable A Prevena dressing is in place and functioning. Plan is for continued mobilization and discharge home in AM. Objective : Data - Labs CBC and BMP: 06/24/18 04:10 06/24/18 04:10 - Vital Signs Vital Signs and I&O: Vital Signs - Last Taken Temperature 98.2 F 06/24/18 04:03 Pulse Rate 63 06/24/18 04:03 Respiratory Rate 20 06/23/18 19:22 Blood Pressure 142/83 06/24/18 04:03 Pulse Ox 97 06/24/18 05:13 Intake and Output (24hr x 4 totals) 06/22/18 06/23/18 06/24/18 06/25/18 05:59 05:59 05:59 05:59 Intake Total 800 / 800 5642 / 5642 3615 / 3615 Output Total 1600 / 1600 575 / 575 Balance 800 / 800 4042 / 4042 3040 / 3040
[2018-06-24] MEDS: PANTOPRAZOLE 40 MG TABLET PO SCH (07:25)
--- NOTE | 2018-06-24 10:44 | PDOC(PROG) ---
Interval History: Patient's pain is resolved he states. No chest pain nausea or vomiting Objective : Data - Labs CBC and BMP: 06/24/18 04:10 06/24/18 04:10 Objective : Exam - General General Appearance: Cooperative - Respiratory Respiratory Exam: Clear to Auscultation - Bilaterally, Breathing Non Labored, Normal To Percussion, Normal to Percussion and Palpation - Cardiovascular Cardiovascular Exam: RRR, No Murmur, No Clicks, No Gallops, No Rubs, PMI Non- Displaced - GI/Abdominal GI/Abdominal Exam: Normal Bowel Sounds, Non Tender, Non Distended, Soft, No Masses, No Hepatomegaly, No Splenomegaly, No Organomegaly - Extremities Extremities Exam: No Clubbing Present, No Edema Present, No Cyanosis Present - Neurological Neurological Exam: Alert, No Facial Droop, Speech Intact / Clear Assessment and Plan - Patient Problems (1) Back pain Current Visit: Yes Status: Acute Comment: Status post lumbar surgery for herniated disc defer to neurosurgery team for PTOT and pain control orders. Otherwise patient is improved continue physical therapy and other medical issues are stable most likely home tomorrow if cleared by PT and OT and neurosurgery Code(s): M54.9 - Dorsalgia, unspecified
--- NOTE | 2018-06-24 11:31 | CRNA.PROGR ---
Anesthesia Note - Progress Notes Anesthesia Progress Note: Freddy is sitting up in bed visiting with his spouse. We discussed his anesthetic course and he has no questions or concerns regarding his anesthetic care. He says his preop leg pain is gone and he just has a "back ache" from the surgical site. No anesthetic concerns at this time. Laboratory Results 06/24/18 06/24/18 04:10 04:10 WBC 16.44 H RBC 4.75 Hgb 13.5 L Hct 41.3 L MCV 86.9 MCH 28.4 MCHC 32.7 L RDW Std Deviation 48.2 RDW Coeff of Charlie 15.3 H Plt Count 186 MPV 11.6 Immature Gran % (Auto) 0.2 Neut % (Auto) 90.6 H Lymph % (Auto) 3.3 L [place] % (Auto) 5.8 Eos % (Auto) 0 Baso % (Auto) 0.1 Immature Gran # (Auto) 0.04 Neut # (Auto) 14.89 Lymph # (Auto) 0.54 [place] # (Auto) 0.96 H Eos # (Auto) 0 Baso # (Auto) 0.01 WBC Morphology Comment Normal morphology Plt Morphology Comment Normal morphology RBC Morph Comment Normal morphology Sodium 141 Potassium 5.0 Chloride 109 Carbon Dioxide 22 L Anion Gap 10 BUN 28 H Creatinine 1.0 Estimated GFR > 60 BUN/Creatinine Ratio 28.00 H Glucose 127 H Calculated Osmolality 299.0 H Calcium 8.3 L Vital Signs (24 hrs) 06/23/18 11:40 06/23/18 11:45 06/23/18 11:50 Temperature 96.9 F Pulse Rate 45 L 48 L 51 L Pulse Rate [Pulse Oximeter] Respiratory Rate 15 15 16 Blood Pressure 105/65 104/70 126/78 Blood Pressure [Left Arm] Pulse Ox 94 95 95 06/23/18 12:00 06/23/18 12:05 06/23/18 12:10 Temperature 97.2 F Pulse Rate 49 L 46 L 48 L Pulse Rate [Pulse Oximeter] Respiratory Rate 13 16 14 Blood Pressure 125/71 112/74 129/77 Blood Pressure [Left Arm] Pulse Ox 95 94 94 06/23/18 12:15 06/23/18 12:30 06/23/18 12:45 Temperature 97 F 97 F Pulse Rate 43 L Pulse Rate [Pulse Oximeter] 46 L 45 L Respiratory Rate 15 12 14 Blood Pressure 122/83 Blood Pressure [Left Arm] 129/81 132/88 Pulse Ox 95 98 100 06/23/18 13:00 06/23/18 13:15 06/23/18 13:45 Temperature 97.1 F 97.4 F 97.5 F Pulse Rate Pulse Rate [Pulse Oximeter] 45 L 42 L 49 L Respiratory Rate 14 20 18 Blood Pressure Blood Pressure [Left Arm] 126/84 124/79 137/86 Pulse Ox 99 99 98 06/23/18 16:34 06/23/18 18:30 06/23/18 19:22 Temperature 97.2 F Pulse Rate Pulse Rate [Pulse Oximeter] 54 L 56 L 56 L Respiratory Rate 20 20 20 Blood Pressure Blood Pressure [Left Arm] 148/85 127/75 Pulse Ox 98 99 06/23/18 19:28 06/24/18 00:02 06/24/18 04:03 Temperature 97.4 F 98.2 F 98.2 F Pulse Rate Pulse Rate [Pulse Oximeter] 58 L 63 Respiratory Rate Blood Pressure Blood Pressure [Left Arm] 128/70 142/83 Pulse Ox 96 95 06/24/18 05:13 06/24/18 07:02 06/24/18 09:22 Temperature 97.1 F Pulse Rate Pulse Rate [Pulse Oximeter] 55 L Respiratory Rate 17 20 Blood Pressure Blood Pressure [Left Arm] 130/74 Pulse Ox 97 96 06/24/18 11:11 Temperature 98.6 F Pulse Rate Pulse Rate [Pulse Oximeter] 62 Respiratory Rate 17 Blood Pressure Blood Pressure [Left Arm] 127/75 Pulse Ox 97
[2018-06-24] MEDS: oxyCODONE/APAP 7.5/325 Tab 1 TAB TAB PO PRN ×2 (12:35→17:24)
[2018-06-24] MEDS ORDERED: CYCLOBENZAPRINE 10 MG TABLET PO ONE (20:44)
[2018-06-25] MEDS: oxyCODONE/APAP 7.5/325 Tab 1 TAB TAB PO PRN ×2 (04:12→08:49)
[2018-06-25] MEDS: Dexamethasone Tab 4 MG TABLET PO SCH (04:12)
[2018-06-25 04:52] LABS: BASOPHILS # (AUTO) 0 10*3/UL; BASOPHILS % (AUTO) 0 % (0-1); EOSINOPHILS # (AUTO) 0 10*3/UL; EOSINOPHILS % (AUTO) 0 % (0-8); Hematocrit [HCT] 40.9 % (42.0-52.0); Hemoglobin [HGB] 13.2 g/dL (14.0-18.0); LYMPHOCYTES # (AUTO) 0.74 10*3/uL; MEAN CORPUSCULAR HEMOGLOBIN 27.9 PG (27-31); MEAN CORPUSCULAR HGB CONC 32.3 g/dL (33-37); MEAN CORPUSCULAR VOLUME 86.5 FL (80-90); MEAN PLATELET VOLUME 11.1 FL (7.4-12.2); MONOCYTES # (AUTO) 0.92 10*3/UL (0.3-0.8); MONOCYTES % (AUTO) 7.4 % (5-15); NEUTROPHILS # (AUTO) 10.65 10*3/UL; NEUTROPHILS % (AUTO) 86.1 % (50-80); RED BLOOD COUNT 4.73 10^6/uL (4.70-6.10)
[2018-06-25 05:02] LABS: BLOOD UREA NITROGEN 25 mg/dL (7-22); BUN/CREATININE RATIO 27.77 (6-20); SERUM ALBUMIN 2.9 g/dL (3.5-4.8)
[2018-06-25 05:07] LABS: PLATELET MORPHOLOGY COMMENT NORMAL MORPHOLOGY (NORM); RBC MORPHOLOGY COMMENT NORMAL MORPHOLOGY (NORM); WBC MORPHOLOGY COMMENT NORMAL MORPHOLOGY (NORM)
--- NOTE | 2018-06-25 06:08 | NEURO.PROG ---
Subjective Post Op Day: 2 Pain Management: PO Chu Catheter: No Diet: Regular Ambulating: Yes Additional Details: Freddy is awake and alert and feels ready to go home. He has ambulated with the nurses but is awaiting clearance from physical therapy this morning on stairs. He denies the pre op pain radiating down his right lateral thigh to the knee. He has had surgical site pain, relieved by hydrocodone. The Prevena dressing is intact and functioning. He is afebrile and VSS. He was given post op instructions regarding the Prevena for up to 7 days, then cleansing the incision with a chlorhexidene wipe and applying a silverlon dressiing. He will be given a post op appointment to follow up with Dr. Rahman. Objective : Data - Labs CBC and BMP: 06/25/18 04:36 06/25/18 04:36 - Vital Signs Vital Signs and I&O: Vital Signs - Last Taken Temperature 97.7 F 06/25/18 04:16 Pulse Rate 64 06/25/18 04:16 Respiratory Rate 18 06/25/18 04:16 Blood Pressure 142/90 06/25/18 04:16 Pulse Ox 93 06/25/18 04:55 Intake and Output (24hr x 4 totals) 06/22/18 06/23/18 06/24/18 06/25/18 05:59 05:59 05:59 05:59 Intake Total 800 / 800 5642 / 5642 3615 / 3615 3291 / 3291 Output Total 1600 / 1600 575 / 575 1450 / 1450 Balance 800 / 800 4042 / 4042 3040 / 3040 1841 / 1841
[2018-06-25 06:42] VITALS: BP 166/95; RESP 17; TEMP 97.4
[2018-06-25] MEDS: PANTOPRAZOLE 40 MG TABLET PO SCH (06:57)
[2018-06-25] MEDS ORDERED: CYCLOBENZAPRINE 10 MG TABLET PO SCH (09:00)
--- NOTE | 2018-06-25 09:56 | DCSUMMARY ---
Hospitalization Summary Admit Date: 06/22/2018 Discharge Date: 06/25/18 Primary Diagnosis:: status post L2-3 microdiscectomy Hospital Course: This very pleasant 62-year-old male who came in with acute back pain. MRI showed L2-L3 disc herniation that was quite large. Neurosurgery was counseled to the patient had a microcytic discectomy, see Dr. Rahman's notes regarding procedures performed. In Terms of postoperative recovery, the patient did very well. His pain was controlled. He was ambulatory prior to discharge. He met all of his therapy goals. In terms of his medical issues, they remain stable through the hospital stay. On the date of discharge, the patient denies any chest pain, shortness breath, nausea or vomiting. His back pain was well-controlled and he was "ready to go home". This plan was to spend the night with his mother in [place], [place], before heading back to [place]. I discussed this discharge plan with the patient, and his , and their questions were answered with no further issues. They were in agreement with the plan. Assessment and Plan: 1. As per discharge assessments noted 2. Disposition: Patient is discharged home. 3. Condition on discharge, stable and improved. 4. Diet: regular diet 5. Activities: Activities as per neurosurgery and physical therapy 6. Follow-Up: 1. Primary care physician within 7-14 days 2. Neurosurgery as scheduled for recheck of wound 7. Medications at the Time of Discharge: Home Medications Medication Instructions Recorded Confirmed Doxazosin Mesylate 1 tab PO DAILY 06/21/18 06/21/18 Furosemide 40 mg PO DAILY 06/21/18 06/21/18 cyclobenzaprine 10 mg tablet 10 mg PO TID PRN #90 tab 06/25/18 hydrocodone 7.5 mg-acetaminophen 2 tab PO Q4H PRN #90 tab 06/25/18 325 mg tablet Exam - Vitals Vital Signs: Vital Signs Vital Signs - Last Taken Temperature 97.4 F 06/25/18 06:39 Pulse Rate 55 L 06/25/18 06:39 Respiratory Rate 17 06/25/18 06:39 Blood Pressure 166/95 06/25/18 06:39 Pulse Ox 95 06/25/18 06:39 Height 5 ft 9 in Weight 278 lb 8 oz I reconfirmed his oxygen saturation and it was 95% on room air. - General General Appearance: No Acute Distress, Cooperative - Head Head Exam: Normal Inspection, Normocephalic, Atraumatic - Eye Eye Exam: POSITIVE: No Scleral Icterus - ENT ENT Exam: POSITIVE: Mucous Membranes Moist - Neck Neck Exam: JVP is not Raised - Respiratory Respiratory Exam: POSITIVE: Clear to Auscultation - Bilaterally, Breathing Non Labored - Cardiovascular Cardiovascular Exam: POSITIVE: RRR, No Murmur, No Clicks, No Gallops, No Rubs, No JVD - GI/Abdominal GI/Abdominal Exam: POSITIVE: Normal Bowel Sounds, Non Tender, Non Distended, Soft - Extremities Extremities Exam: POSITIVE: No Clubbing Present, No Edema Present, No Cyanosis Present - Neurological Neurological Exam: POSITIVE: Alert, Oriented x 3, No Facial Droop, Speech Intact / Clear, Moves All Extremities Equally - Psychiatric Psychiatric Exam: POSITIVE: Normal Affect, Normal Mood Data Peritnent Studies: 06/21/18 06/22/18 06/25/18 22:29 21:11 04:36 WBC 12.37 H Hgb 13.2 L Plt Count 174 Sodium Potassium Chloride Carbon Dioxide Anion Gap BUN Creatinine Estimated GFR BUN/Creatinine Ratio Glucose Calculated Osmolality Calcium Total Bilirubin AST ALT Alkaline Phosphatase Troponin I < 0.012 Total Protein Albumin Globulin Albumin/Globulin Ratio Serum Alcohol < 10 06/25/18 04:36 WBC Hgb Plt Count Sodium 138 Potassium 4.6 Chloride 105 Carbon Dioxide 25 Anion Gap 8 BUN 25 H Creatinine 0.9 Estimated GFR > 60 BUN/Creatinine Ratio 27.77 H Glucose 125 H Calculated Osmolality 290.0 Calcium 8.3 L Total Bilirubin 0.3 AST 19 L ALT 17 L Alkaline Phosphatase 62 Troponin I Total Protein 5.4 L Albumin 2.9 L Globulin 2.5 Albumin/Globulin Ratio 1.10 L Serum Alcohol Procedures: [address] [facility]. [facility] DMITRI Kahn [id number] PH: DD: [phone] FAX: [phone] ~DIAGNOSTIC IMAGING REPORT~ Patient: VIRAJ CEJA : 1955 Sex: M Age: 62 Exam Name: MRI Lumbar Spine WO Contrast Exam Date: 06/22/18 Report # : [id number] CPT Code: 75475 EMR/MR #: [id number] Ordering: Joan Monique Admiting: ERNIE MCKEON MD. Primary: NONE,NONE Attending: ERNIE MCKEON MD. Signed MRI Lumbar Spine WO Contrast 06/22/2018 10:31 AM History: [facility] DI ^low back pain with radiculopathy Comparison: Lumbar spine radiographs from 06/21/2018. CT lumbar spine 06/22/2018. Procedure: Noncontrast routine MR imaging of the lumbar spine was performed. Findings: There are five non rib-bearing lumbar type vertebral bodies. 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 There is an L3 vertebral hemangioma. Modic type II endplate changes are present at the L3/4 and L4/5 levels. The vertebral body heights are maintained and marrow signal is otherwise preserved. There is normal termination of the conus at the L1 level. L1/2: Mild disc desiccation without height loss. Schmorl's node formation. Concentric disc bulge and narrows the central canal to 10 mm. There is mild bilateral neuroforaminal and lateral recess narrowing. L2/3: Mild disc desiccation and height loss. Concentric disc bulge narrows the central canal to 9 mm. There is a right foraminal disc protrusion that impinges on the exiting right L2 nerve root in the neural foramen and far lateral space. The disc bulge also causes lateral recess narrowing on the left and is in contact with the descending left L3 nerve root in the lateral recess. L3/4: Moderate disc desiccation and height loss. Concentric disc bulge narrows the central canal to 7 mm. The disc bulge combined with ligamentum flavum hypertrophy and facet arthrosis results in moderate bilateral neuroforaminal and lateral recess narrowing. The disc bulge impinges on the descending left L4 nerve root in the lateral recess. L4/5: Moderate disc desiccation and height loss. Concentric disc bulge narrows the central canal to 8 mm. The disc bulge with ligamentum flavum hypertrophy and facet arthrosis results in moderate bilateral neuroforaminal and lateral recess narrowing. The disc bulge contacts the exited L4 nerve roots in the far lateral space bilaterally. The disc bulge contacts the descending L5 nerve roots in the lateral recesses bilaterally. L5/S1: Mild disc desiccation and height loss. There is no significant central canal stenosis. Ligamentum flavum hypertrophy and facet arthrosis results in mild bilateral neuroforaminal narrowing. Paravertebral soft tissues are within normal limits. Impression: Multilevel degenerative disc disease as above. There is a right foraminal L2/3 disc protrusion that impinges on the exiting right L2 never in the neural foramen and far lateral space. Nerve root contact is noted at multiple other levels. Dictated By: 06/22/18 1210 DA TORO MD. Signed By: 06/22/18 1229 DA TORO MD. Patient Problems - Patient Problem List (1) Status post discectomy for herniated nucleus pulposus Current Visit: Yes Status: Acute Code(s): Z98.890 - Other specified postprocedural states; Z87.39 - Personal history of other diseases of the musculoskeletal system and connective tissue Category: Surgical (2) Herniated nucleus pulposus, L2-3 right Current Visit: Yes Status: Acute Code(s): M51.26 - Other intervertebral disc displacement, lumbar region Category: Medical (3) Lumbar radiculopathy Current Visit: Yes Status: Acute Code(s): M54.16 - Radiculopathy, lumbar region Category: Medical (4) Sleep apnea Current Visit: Yes Status: Acute Code(s): G47.30 - Sleep apnea, unspecified Qualifiers: Sleep apnea type: unspecified type Qualified Code(s): G47.30 - Sleep apnea, unspecified Category: Medical (5) Hypertension Current Visit: Yes Status: Acute Code(s): I10 - Essential (primary) hypertension Qualifiers: Hypertension type: essential hypertension Qualified Code(s): I10 - E ssential (primary) hypertension Category: Medical
[2018-06-25 10:08] VITALS: O2SAT 94
--- NOTE | 2018-06-25 11:30 | PTI REPORT ---
Thank you for the referral of Melvin Saleh. He was seen on 06/24/18 for an inpatient evaluation status post discectomy. SUBJECTIVE: The patient is a 62-year-old male who experienced a fall last week and required surgery. He had a surgery earlier this week that did not help so he went back in for a discectomy yesterday. The patient lives in [place] with his . He states he is currently not experiencing any back pain. The patient has 3-4 stairs to get into his house. He reports no prior falls before this injury. Prior to admission the patient was not using an assistive device. PAST MEDICAL HISTORY: Past medical history can be found in the patient's medical record. OBJECTIVE FINDINGS: Bed mobility: The patient was able to perform log roll to side with contact guard assist x1. The patient's oxygen was removed by PT in order to ambulate. Following ambulation the patient was able to log roll himself back into bed with contact guard assist x1. Transfers: The patient performed sit to stand transfer with contact guard assist x2 for safety. The patient then transferred from stand to sit. Ambulation: The patient was able to ambulate 150 feet with contact guard assist x2. He demonstrated a good gait pattern and he did not experience any pain; however, he did feel slightly fatigued. ASSESSMENT: The patient has a good prognosis for therapy Problem List: Patient is status post discectomy. Short-Term Goals: To be met by discharge from inpatient: Patient will be able to transfer from bed to stand independently and safely gain appropriate standing balance. Patient will be able to ambulate 150 feet independently in order to return home safely. Patient will be able to will be able to ascend and descend 5 stairs independently in order to return home. Long-Term Goals: To be met following discharge from inpatient: Patient may be a good candidate for outpatient therapy depending on physician's orders. TREATMENT PLAN: Patient will be seen B.I.D during the week and one time per day over the weekend as an inpatient to address the above goals and objectives. INITIAL TREATMENT: Treatment today consisted of the initial evaluation followed by one unit of functional activity consisting of ambulation and transfers. Following treatment the patient was left in bed with oxygen on, bed alarm set, and call light within reach. Dictated by: LY Blas Supervised by: PEREZ Ro
--- NOTE | 2018-06-25 16:27 | OTI REPORT ---
Thank you for the referral of Melvin Saleh. He was seen on 06/25/18 for an occupational therapy inpatient evaluation status post laminectomy. SUBJECTIVE: The patient is a 62-year-old male who is being seen secondary to having a laminectomy. The patient is from [place]. The patient's was present during today's session. The patient reports that prior to admission he was independent with ADLs and all functional transfers. PAST MEDICAL HISTORY: Past medical history can be found in the patient's medical record. OBJECTIVE FINDINGS: General observations: The patient was educated in his back precautions. Activities of daily living: The patient was observed being able to complete a toilet transfer with stand by assist and was able to stand at sink to complete ADLs with stand by assist. While sitting edge of bed we worked on adaptive equipment. Physical therapy issued the patient adaptive equipment yesterday as the patient was possibly going to discharge yesterday. The patient was instructed on how to use the equipment. He was able to doff socks using the lifeline representatives and don socks using a sock aide. The patient participated in lower extremities dressing activities with modified independence. ASSESSMENT: The patient is doing well. He was able to use the lifeline representatives and sock aide to doff and don socks and don pants. He also used the shoe horn to don shoes. They do have a higher toilet seat at home as well as a walk in shower, so the patient did not want a shower chair. The patient's balance is good. Short-Term Goals: To be met by discharge from inpatient: Patient will be able to dress self with modified independence. Patient will be able to complete all functional transfers with stand by assist. Long-Term Goals: To be met following discharge from inpatient: Patient will return home demonstrating independence and safety with all functional transfers and ADLs. TREATMENT PLAN: Patient will be discharged from Occupational Therapy secondary to meeting all goals. INITIAL TREATMENT: Treatment today consisted of the initial evaluation activities only. ELIANA
--- NOTE | 2018-06-25 17:36 | NEURO.PROG ---
Subjective Post Op Day: 2 Pain Management: PO Chu Catheter: No Flatus: Yes Diet: Regular Ambulating: Yes Additional Details: Mr. Saleh was seen by myself and my nurse earlier this morning before discharge. He was doing well with resolution of his severe pre-operative pain. He was ambulating well. Arrangements were made for follow-up in my [facility] in two weeks. Objective : Data - Labs CBC and BMP: 06/25/18 04:36 06/25/18 04:36 - Vital Signs Vital Signs and I&O: Vital Signs - Last Taken Temperature 97.4 F 06/25/18 06:39 Pulse Rate 55 L 06/25/18 06:39 Respiratory Rate 17 06/25/18 06:39 Blood Pressure 166/95 06/25/18 06:39 Pulse Ox 94 06/25/18 08:30 Intake and Output (24hr x 4 totals) 06/23/18 06/24/18 06/25/18 06/26/18 05:59 05:59 05:59 05:59 Intake Total 5642 / 5642 3615 / 3615 3291 / 3291 590 / 590 Output Total 1600 / 1600 575 / 575 1450 / 1450 Balance 4042 / 4042 3040 / 3040 1841 / 1841 590 / 590
== END 2018-06-25 10:08 | disposition home or self-care (01) | DRG 520 ==
LOC: ER 20:22 → MED/SURG 20:22 → OPS 06-23 07:00 → MED/SURG 06-23 12:17
PROVIDERS: ADMIT Internal Medicine; ATTEND Internal Medicine